=== PATIENT | male | born 1950 | race Caucasian/White ===

== ENCOUNTER 2018-04-02 05:16 | Day surgery (SDC) | payer MEDICARE ==
[2018-03-28 11:45] LABS: BASOPHILS # (AUTO) 0.1 X10'3 (0-0.2); EOSINOPHILS # (AUTO) 0.3 X10'3 (0-0.9); EOSINOPHILS % (AUTO) 4.2 % (0-6); LYMPHOCYTES # (AUTO) 1.9 X10'3 (1.1-4.8); LYMPHOCYTES % (AUTO) 25.9 % (21-51); MEAN CORPUSCULAR HEMOGLOBIN 29.2 PG (27.0-31.0); MEAN CORPUSCULAR HGB CONC 33.5 % (33.0-36.5); MEAN CORPUSCULAR VOLUME 87.2 FL (78-98); MEAN PLATELET VOLUME 7.6 FL (7.4-10.4); MONOCYTES # (AUTO) 0.5 X10'3 (0-0.9); MONOCYTES % (AUTO) 7.3 % (2-12); NEUTROPHILS # (AUTO) 4.4 X10'3 (1.8-7.7); NEUTROPHILS % (AUTO) 61.6 % (42-75); PRE OP HEMOGLOBIN 13.4 g/dL (14.0-17.9); PRE OP PLATELET COUNT 267 X10'3 (140-440); RED BLOOD COUNT 4.59 X10'6 (4.70-6.10); RED CELL DISTRIBUTION WIDTH 14.4 % (11.5-14.5)
[2018-03-28 12:03] LABS: ALBUMIN 3.4 G/DL (3.4-5.0); ALKALINE PHOSPHATASE 134 IU/L (46-116); BLOOD UREA NITROGEN 10 MG/DL (7-18); BUN/CREATININE RATIO 11.2 (5.4-32.0); CALCIUM 8.5 MG/DL (8.5-10.1); CHLORIDE 104 MMOL/L (99-107); CREATININE 0.89 MG/DL (0.60-1.10); PRE OP ALT 28 U/L (30-65); PRE OP ANION GAP 9 (8-16); PRE OP AST 17 U/L (10-37); PRE OP BILIRUB, TOTAL 0.3 MG/DL (0.0-1.0); PRE OP GLUCOSE 94 MG/DL (70-104); PRE OP POTASSIUM 4.3 MMOL/L (3.4-5.1); PRE OP SODIUM 141 MMOL/L (135-145); TOTAL CARBON DIOXIDE 27.6 MMOL/L (24-32); TOTAL PROTEIN 6.8 G/DL (6.4-8.2); eGFR 85 ML/MIN
[~2018-04-02] VITALS: Ht 177.8 cm; Wt 80.8 kg
[2018-04-02] VITALS (8 sets, daily range): BP systolic 115–141; BP diastolic 68–83
[~2018-04-02 05:16] MED LIST: ATOR40TA PO; LANTUS SQ; METF1000 PO; METO-292 PO; OMEP40CA37 PO; TERA2CAP4 PO; VENL150C2 PO; ringers solution, lacted 1,000 ML IV SCH
[2018-04-02] MEDS ORDERED: Cefazolin 2GM/50ML dext iso,osmotic IVPB IV ONE (05:30)
[2018-04-02] MEDS ORDERED: famotidine 20mg tablet PO ONE (05:30)
[2018-04-02] MEDS ORDERED: LIDOcaine 1% (10mg/ml) 2ml vial ONE (06:02)
[2018-04-02] MEDS ORDERED: triamcinolone acetonide 40mg/ml inj ONE (06:04)
[2018-04-02] MEDS ORDERED: BUPIVAcaine/PF 2.5mg/ml (0.25%) 10ml vial ONE (06:04)
[2018-04-02] MEDS ORDERED: sevoflurane 250ml liquid IH ONE (07:07)
[2018-04-02] MEDS ORDERED: ROPIVAcaine 0.5% (5mg/ml) 30ml vial ONE (07:11)
[2018-04-02] MEDS ORDERED: cloNIDine hcl/PF 100mcg/ml inj ONE (07:11)
[2018-04-02] MEDS ORDERED: LIDOcaine 2% (20mg/ml) 5ml vial ONE (07:16)
[2018-04-02] MEDS ORDERED: midazolam 2 mg/2 ml injection ONE (07:16)
[2018-04-02] MEDS ORDERED: fentaNYL/PF 50MCG/1 ML 2ML syringe ONE (07:16)
[2018-04-02] MEDS ORDERED: dexamethasone sod phosphate 4mg/ml inj. ONE (07:16)
[2018-04-02] MEDS ORDERED: propofol inj 20 ML IV ONE (07:16)
[2018-04-02] MEDS ORDERED: HYDROcodone/acetaminophen 10/325mg tab PO PRN (07:45)
[2018-04-02] MEDS ORDERED: ringers solution, lacted 1,000 ML IV SCH (07:47)
[2018-04-02] MEDS ORDERED: ondansetron/PF 4mg/2ml inj IV PRN (07:50)
[2018-04-02] MEDS ORDERED: labetalol 20mg/4ml (5mg/ml) syringe IV PRN (07:50)
[2018-04-02] MEDS ORDERED: hydrALAZINE 20mg/ml inj. IV PRN (07:50)
[2018-04-02] MEDS ORDERED: morphine 4 MG/ML inj SYRINge IV PRN ×2 (07:50)
[2018-04-02] MEDS ORDERED: fentaNYL/PF 50MCG/1 ML 2ML syringe IV PRN ×2 (07:50)
== END 2018-04-02 08:50 | disposition home or self-care (01) ==
LOC: PAS 05:16
PROVIDERS: ATTEND Orthopaedic Surgery
DX: M24.561 Contracture, right knee (principal); I25.10 Atherosclerotic heart disease of native coronary artery without angina pectoris; I10 Essential (primary) hypertension; E11.9 Type 2 diabetes mellitus without complications; G89.18 Other acute postprocedural pain; I45.81 Long QT syndrome; M17.11 Unilateral primary osteoarthritis, right knee; Z47.1 Aftercare following joint replacement surgery; Z96.651 Presence of right artificial knee joint; Z79.891 Long term (current) use of opiate analgesic; Z79.4 Long term (current) use of insulin; Z72.89 Other problems related to lifestyle; Z79.82 Long term (current) use of aspirin; Z79.84 Long term (current) use of oral hypoglycemic drugs; Z87.891 Personal history of nicotine dependence; Z90.49 Acquired absence of other specified parts of digestive tract; Z95.5 Presence of coronary angioplasty implant and graft; Z85.01 Personal history of malignant neoplasm of esophagus; Z92.21 Personal history of antineoplastic chemotherapy; Z92.3 Personal history of irradiation; Z79.899 Other long term (current) drug therapy; Z98.890 Other specified postprocedural states
CPT/HCPCS: 20610; 27570; 36415; 64447; 80053; 82948; 85025; 87070; 87075; 93005; J0690; J0735; J1100; J2001; J2250; J2704; J2795; J3010; J3301; J3490; J7120

== ENCOUNTER 2018-05-09 15:09 | Emergency (ER) | payer MEDICARE ==
[~2018-05-09] VITALS: Ht 177.8 cm; Wt 76.3 kg
[~2018-05-09 15:09] MED LIST changes: -ringers solution, lacted 1,000 ML IV SCH
[2018-05-09 15:16] VITALS: BP 137/88
== END 2018-05-09 16:13 | disposition home or self-care (01) ==
LOC: ER 15:10
DX: M25.561 Pain in right knee (principal); Z79.899 Other long term (current) drug therapy; Z96.651 Presence of right artificial knee joint
CPT/HCPCS: 73560; 99284

== ENCOUNTER 2018-07-04 06:11 | Inpatient (IN) | payer MEDICARE ==
[2018-07-01 16:10] LABS: BASOPHILS # (AUTO) 0.1 X10'3 (0-0.2); BASOPHILS % (AUTO) 1.2 % (0-1); EOSINOPHILS # (AUTO) 0.2 X10'3 (0-0.9); EOSINOPHILS % (AUTO) 2.7 % (0-6); LYMPHOCYTES # (AUTO) 2.3 X10'3 (1.1-4.8); LYMPHOCYTES % (AUTO) 24.3 % (21-51); MEAN CORPUSCULAR HEMOGLOBIN 29.3 PG (27.0-31.0); MEAN CORPUSCULAR HGB CONC 32.4 % (33.0-36.5); MEAN CORPUSCULAR VOLUME 90.2 FL (78-98); MONOCYTES # (AUTO) 0.7 X10'3 (0-0.9); NEUTROPHILS % (AUTO) 64.8 % (42-75); PRE OP HEMATOCRIT 43.9 % (42.0-52.0); PRE OP HEMOGLOBIN 14.3 g/dL (14.0-17.9); PRE OP PLATELET COUNT 284 X10'3 (140-440); RED BLOOD COUNT 4.87 X10'6 (4.70-6.10); RED CELL DISTRIBUTION WIDTH 14.8 % (11.5-14.5)
[2018-07-01 16:21] LABS: HEMOGLOBIN A1C 6.6 % (4.5-6.2)
[2018-07-01 16:29] LABS: ALBUMIN 3.6 G/DL (3.4-5.0); ALBUMIN/GLOBULIN RATIO 1.1 (1.1-1.5); ALKALINE PHOSPHATASE 138 IU/L (46-116); BLOOD UREA NITROGEN 12 MG/DL (7-18); BUN/CREATININE RATIO 12.6 (5.4-32.0); CALCIUM 8.9 MG/DL (8.5-10.1); CHLORIDE 103 MMOL/L (99-107); CREATININE 0.95 MG/DL (0.60-1.10); PRE OP ALT 35 U/L (30-65); PRE OP ANION GAP 12 (8-16); PRE OP AST 19 U/L (10-37); PRE OP BILIRUB, TOTAL 0.3 MG/DL (0.0-1.0); PRE OP GLUCOSE 110 MG/DL (70-104); PRE OP POTASSIUM 4.4 MMOL/L (3.4-5.1); PRE OP SODIUM 141 MMOL/L (135-145); TOTAL CARBON DIOXIDE 26.4 MMOL/L (24-32); eGFR 78 ML/MIN
[2018-07-04] VITALS (19 sets, daily range): BP systolic 115–163; BP diastolic 61–88
[~2018-07-04] VITALS: Ht 177.8 cm; Wt 84.0 kg
[~2018-07-04 06:11] MED LIST changes: +cefazolin/dext.iso 2gm/50ml 50 ML IV ONE; +famotidine 20mg tablet PO ONE; +ringers solution, lacted 1,000 ML IV SCH; +vancomycin inj 1,500 MG in normal saline 300ml IV soln IV ONE
[2018-07-04] MEDS ORDERED: LIDOcaine 1% (10mg/ml) 2ml vial ONE (06:48)
[2018-07-04] MEDS ORDERED: ketorolac trometh. 30mg/ml inj. ONE (06:53)
[2018-07-04] MEDS ORDERED: ROPIVAcaine 0.5% (5mg/ml) 30ml vial ONE ×2 (06:53→09:01)
[2018-07-04] MEDS ORDERED: vancomycin 1,000mg inj ONE (06:53)
[2018-07-04] MEDS ORDERED: tranexamic acid inj. 840 MG in normal saline 100ml IV soln 91.6 ML IV ONE ×4 (08:55)
[2018-07-04] MEDS ORDERED: fentaNYL/PF 50MCG/1 ML 2ML syringe ONE (08:59)
[2018-07-04] MEDS ORDERED: BUPIVAcaine/dex-water/PF 7.5 mg/ml 2ml ampul ONE (08:59)
[2018-07-04] MEDS ORDERED: MIDAZolam 1mg/ml 10ml vial ONE (08:59)
[2018-07-04] MEDS ORDERED: tetracaine 1% (10mg/ml) pres. free inj. ONE (09:01)
[2018-07-04] MEDS ORDERED: ringers solution, lacted 1,000 ML IV SCH (10:54)
[2018-07-04] MEDS ORDERED: morphine 4 MG/ML inj SYRINge IV PRN ×2 (10:55)
[2018-07-04] MEDS ORDERED: meperidine/PF 25mg/ml syringe IV PRN ×3 (10:55)
[2018-07-04] MEDS ORDERED: proCHLORperazine 10 MG/2 ml inj IV PRN (10:55)
[2018-07-04] MEDS ORDERED: ondansetron/PF 4mg/2ml inj IV PRN ×2 (10:55→12:40)
[2018-07-04] MEDS ORDERED: bisacodyl 10mg suppository rectal RC PRN (12:40)
[2018-07-04] MEDS ORDERED: acetaminophen 325mg tablet PO PRN (12:40)
[2018-07-04] MEDS ORDERED: oxyCODONE IR 5mg (immed. release) tablet PO PRN (12:40)
[2018-07-04] MEDS ORDERED: propofol inj 20 ML IV ONE ×2 (12:40→12:41)
[2018-07-04] MEDS ORDERED: diphenhydrAMINE 25mg capsule PO PRN ×2 (12:40)
[2018-07-04] MEDS ORDERED: magnesium hydroxide 30ml (MOM) UD suspension PO PRN (12:40)
[2018-07-04] MEDS: ROPIVACAINE HCL/PF PAIN PUMP 400 ML IJ SCH (12:53)
[2018-07-04] MEDS: gabapentin 300mg capsule PO SCH ×2 (15:11→20:19)
[2018-07-04] MEDS: potassium cl 20mEq in 1/2 NS 1,000 ML IV SCH (15:11)
[2018-07-04] MEDS: ketorolac tromethamine 15mg/ml inj. IV SCH ×2 (15:12→19:41)
[2018-07-04] MEDS: acetaminophen 325mg tablet PO SCH ×2 (15:13→19:42)
[2018-07-04] MEDS ORDERED: tranexamic acid inj. 840 MG in normal saline 100ml IV soln 100 ML IV ONE (16:00)
[2018-07-04] MEDS: metoclopramide 10mg tablet PO SCH ×2 (18:15→23:33)
[2018-07-04] MEDS: ceFAZolin 1GM/D5W- ADD-VANTAGE 50 ML IV SCH ×2 (18:15→23:32)
[2018-07-04] MEDS: oxyCODONE IR 5mg (immed. release) tablet PO PRN ×2 (18:16→23:33)
[2018-07-04] MEDS: pantoprazole 40mg Tablet.DR PO SCH (19:42)
[2018-07-04] MEDS: metFORMIN 500mg tablet PO SCH (19:42)
[2018-07-04] MEDS ORDERED: vancomycin/NS 1 GM ADD-VANTAGE 250 ML IV SCH (20:00)
[2018-07-04] MEDS ORDERED: non-formulary drug (Omeprazole (Prilosec) 1 CAP) PO SCH (20:00)
[2018-07-04] MEDS: atorvastatin 20mg tablet PO SCH (20:20)
[2018-07-04] MEDS: Terazosin 1mg capsule PO SCH (20:20)
[2018-07-04] MEDS: sennosides 8.6mg tablet PO SCH (20:21)
[2018-07-04] MEDS: insulin glargine (Lantus) pen - multi-dose SQ SCH (20:36)
[2018-07-04] MEDS ORDERED: TERAZOSIN HCL PO SCH (21:00)
[2018-07-04] MEDS ORDERED: non-formulary drug (Atorvastatin Calcium* (Lipitor*) 1 TABLET) PO SCH (21:00)
[2018-07-05] MEDS: acetaminophen 325mg tablet PO SCH ×4 (01:28→19:13)
[2018-07-05] MEDS: potassium cl 20mEq in 1/2 NS 1,000 ML IV SCH ×4 (01:28→20:37)
[2018-07-05] MEDS: ketorolac tromethamine 15mg/ml inj. IV SCH ×2 (01:28→10:02)
[2018-07-05 01:58] VITALS: BP 143/72
[2018-07-05] MEDS: oxyCODONE IR 5mg (immed. release) tablet PO PRN ×5 (05:01→22:09)
[2018-07-05 06:00] VITALS: BP 129/64
[2018-07-05 06:06] LABS: BASOPHILS % (AUTO) 0.5 % (0-1); EOSINOPHILS # (AUTO) 0.2 X10'3 (0-0.9); EOSINOPHILS % (AUTO) 2.6 % (0-6); HEMATOCRIT 33.2 % (42.0-52.0); HEMOGLOBIN 11.1 g/dl (14.0-17.9); LYMPHOCYTES # (AUTO) 1.3 X10'3 (1.1-4.8); LYMPHOCYTES % (AUTO) 14.4 % (21-51); MEAN CORPUSCULAR HEMOGLOBIN 29.9 PG (27.0-31.0); MEAN CORPUSCULAR HGB CONC 33.4 % (33.0-36.5); MEAN CORPUSCULAR VOLUME 89.4 FL (78-98); MEAN PLATELET VOLUME 7.5 FL (7.4-10.4); MONOCYTES # (AUTO) 0.8 X10'3 (0-0.9); MONOCYTES % (AUTO) 9.2 % (2-12); NEUTROPHILS # (AUTO) 6.4 X10'3 (1.8-7.7); NEUTROPHILS % (AUTO) 73.3 % (42-75); PLATELET COUNT 197 X10'3 (140-440); RED BLOOD COUNT 3.71 X10'6 (4.70-6.10); RED CELL DISTRIBUTION WIDTH 14.1 % (11.5-14.5); WHITE BLOOD COUNT 8.7 X10'3 (4.5-11.0)
[2018-07-05 06:34] LABS: ANION GAP 8 (8-16); CHLORIDE 107 MMOL/L (99-107); POTASSIUM 3.9 MMOL/L (3.5-5.1); SODIUM 141 MMOL/L (135-145); TOTAL CARBON DIOXIDE 26.3 MMOL/L (24-32)
[2018-07-05] MEDS ORDERED: non-formulary drug (Venlafaxine HCl (Effexor Xr) 1 CAP) PO SCH (08:00)
[2018-07-05 10:00] VITALS: BP 115/60
[2018-07-05] MEDS: pantoprazole 40mg Tablet.DR PO SCH ×2 (10:00→19:12)
[2018-07-05] MEDS: aspirin 325mg tablet PO SCH (10:01)
[2018-07-05] MEDS: gabapentin 300mg capsule PO SCH ×3 (10:01→20:14)
[2018-07-05] MEDS: metoclopramide 10mg tablet PO SCH ×3 (10:01→23:03)
[2018-07-05] MEDS: metFORMIN 500mg tablet PO SCH ×2 (10:01→19:12)
[2018-07-05] MEDS: venlafaxine XR 75mg capsule (Q24H) PO SCH (10:02)
[2018-07-05] MEDS: HYDROmorphone 1 mg/ml syringe IV PRN ×2 (12:06→16:00)
[2018-07-05 14:00] VITALS: BP 132/54
[2018-07-05 18:00] VITALS: BP 125/70
[2018-07-05] MEDS: celeCOXIB 100mg capsule PO SCH (19:12)
[2018-07-05] MEDS: atorvastatin 20mg tablet PO SCH (20:14)
[2018-07-05] MEDS: Terazosin 1mg capsule PO SCH (20:14)
[2018-07-05] MEDS: insulin glargine (Lantus) pen - multi-dose SQ SCH (20:20)
[2018-07-05] MEDS: sennosides 8.6mg tablet PO SCH (21:00)
[2018-07-05 22:00] VITALS: BP 139/63
[2018-07-06] MEDS: acetaminophen 325mg tablet PO SCH ×2 (01:17→08:32)
[2018-07-06] MEDS: potassium cl 20mEq in 1/2 NS 1,000 ML IV SCH (04:37)
[2018-07-06] MEDS: oxyCODONE IR 5mg (immed. release) tablet PO PRN ×4 (05:16→20:13)
[2018-07-06 06:00] VITALS: BP 125/63
[2018-07-06 06:24] LABS: BASOPHILS % (AUTO) 0.6 % (0-1); EOSINOPHILS # (AUTO) 0.2 X10'3 (0-0.9); HEMOGLOBIN 10.4 g/dl (14.0-17.9); LYMPHOCYTES # (AUTO) 1.4 X10'3 (1.1-4.8); LYMPHOCYTES % (AUTO) 18.1 % (21-51); MEAN CORPUSCULAR HEMOGLOBIN 30.2 PG (27.0-31.0); MEAN CORPUSCULAR HGB CONC 33.6 % (33.0-36.5); MEAN CORPUSCULAR VOLUME 89.7 FL (78-98); MEAN PLATELET VOLUME 7.9 FL (7.4-10.4); MONOCYTES # (AUTO) 0.8 X10'3 (0-0.9); MONOCYTES % (AUTO) 11.1 % (2-12); NEUTROPHILS # (AUTO) 5.1 X10'3 (1.8-7.7); NEUTROPHILS % (AUTO) 67.2 % (42-75); PLATELET COUNT 186 X10'3 (140-440); RED BLOOD COUNT 3.46 X10'6 (4.70-6.10); WHITE BLOOD COUNT 7.6 X10'3 (4.5-11.0)
[2018-07-06] MEDS: venlafaxine XR 75mg capsule (Q24H) PO SCH (08:30)
[2018-07-06] MEDS: celeCOXIB 100mg capsule PO SCH ×2 (08:30→19:04)
[2018-07-06] MEDS: metFORMIN 500mg tablet PO SCH ×2 (08:30→19:05)
[2018-07-06] MEDS: gabapentin 300mg capsule PO SCH ×3 (08:31→20:06)
[2018-07-06] MEDS: metoclopramide 10mg tablet PO SCH ×2 (08:31→15:45)
[2018-07-06] MEDS: pantoprazole 40mg Tablet.DR PO SCH ×2 (08:31→19:04)
[2018-07-06] MEDS: aspirin 325mg tablet PO SCH (08:33)
[2018-07-06 10:00] VITALS: BP 118/64
[2018-07-06] MEDS: ROPIVACAINE HCL/PF PAIN PUMP 400 ML IJ SCH (10:52)
[2018-07-06] MEDS ORDERED: acetaminophen 325mg tablet PO PRN (12:40)
[2018-07-06 18:00] VITALS: BP 147/80
[2018-07-06] MEDS: Terazosin 1mg capsule PO SCH (20:06)
[2018-07-06] MEDS: sennosides 8.6mg tablet PO SCH (20:06)
[2018-07-06] MEDS: atorvastatin 20mg tablet PO SCH (20:06)
[2018-07-06] MEDS: insulin glargine (Lantus) pen - multi-dose SQ SCH (20:13)
[2018-07-06 22:00] VITALS: BP 139/68
[2018-07-07] MEDS: oxyCODONE IR 5mg (immed. release) tablet PO PRN ×3 (00:10→10:24)
[2018-07-07] MEDS: metoclopramide 10mg tablet PO SCH ×2 (00:10→07:22)
[2018-07-07 06:59] VITALS: BP 122/70
[2018-07-07 07:13] LABS: BASOPHILS % (AUTO) 0.3 % (0-1); EOSINOPHILS # (AUTO) 0.2 X10'3 (0-0.9); EOSINOPHILS % (AUTO) 2.4 % (0-6); HEMOGLOBIN 10.4 g/dl (14.0-17.9); LYMPHOCYTES # (AUTO) 1.2 X10'3 (1.1-4.8); LYMPHOCYTES % (AUTO) 15.4 % (21-51); MEAN CORPUSCULAR HEMOGLOBIN 29.9 PG (27.0-31.0); MEAN CORPUSCULAR HGB CONC 33.5 % (33.0-36.5); MEAN CORPUSCULAR VOLUME 89.4 FL (78-98); MEAN PLATELET VOLUME 7.6 FL (7.4-10.4); MONOCYTES # (AUTO) 0.6 X10'3 (0-0.9); MONOCYTES % (AUTO) 7.3 % (2-12); NEUTROPHILS # (AUTO) 5.7 X10'3 (1.8-7.7); NEUTROPHILS % (AUTO) 74.6 % (42-75); PLATELET COUNT 195 X10'3 (140-440); RED BLOOD COUNT 3.46 X10'6 (4.70-6.10); RED CELL DISTRIBUTION WIDTH 14.4 % (11.5-14.5); WHITE BLOOD COUNT 7.7 X10'3 (4.5-11.0)
[2018-07-07] MEDS: gabapentin 300mg capsule PO SCH ×2 (07:21→13:19)
[2018-07-07] MEDS: pantoprazole 40mg Tablet.DR PO SCH (07:21)
[2018-07-07] MEDS: aspirin 325mg tablet PO SCH (07:21)
[2018-07-07] MEDS: celeCOXIB 100mg capsule PO SCH (07:21)
[2018-07-07] MEDS: venlafaxine XR 75mg capsule (Q24H) PO SCH (07:22)
[2018-07-07] MEDS: metFORMIN 500mg tablet PO SCH (07:22)
[2018-07-07] MEDS ORDERED: dextrose ORAL solution 15 GM/59 ML bottle PO PRN ×2 (07:40→07:45)
[2018-07-07 12:01] VITALS: BP 120/66
== END 2018-07-07 14:15 | disposition home or self-care (01) | DRG 467 ==
LOC: PAS IN 06:11 → EDSTATUS 13:30 → ORTHO 4S 13:59
PROVIDERS: ADMIT Orthopaedic Surgery; ATTEND Orthopaedic Surgery
PROC: 0SRT0J9 Replacement of Right Knee Joint, Femoral Surface with Synthetic Substitute, Cemented, Open Approach (ICD-10-PCS; 2018-07-04)
PROC: 8E0YXBZ Computer Assisted Procedure of Lower Extremity (ICD-10-PCS; 2018-07-04)
PROC: 3E0T3BZ Introduction of Anesthetic Agent into Peripheral Nerves and Plexi, Percutaneous Approach (ICD-10-PCS; 2018-07-04)
PROC: 0SPV0JZ Removal of Synthetic Substitute from Right Knee Joint, Tibial Surface, Open Approach (ICD-10-PCS; 2018-07-04)
PROC: 0SRV0J9 Replacement of Right Knee Joint, Tibial Surface with Synthetic Substitute, Cemented, Open Approach (ICD-10-PCS; 2018-07-04)
PROC: 0SPT0JZ Removal of Synthetic Substitute from Right Knee Joint, Femoral Surface, Open Approach (ICD-10-PCS; principal; 2018-07-04 09:29)
DX: T84.092A Other mechanical complication of internal right knee prosthesis, initial encounter (principal); D62 Acute posthemorrhagic anemia; M25.661 Stiffness of right knee, not elsewhere classified; E11.9 Type 2 diabetes mellitus without complications; I25.10 Atherosclerotic heart disease of native coronary artery without angina pectoris; N40.0 Benign prostatic hyperplasia without lower urinary tract symptoms; M81.0 Age-related osteoporosis without current pathological fracture; K21.9 Gastro-esophageal reflux disease without esophagitis; E78.5 Hyperlipidemia, unspecified; F41.9 Anxiety disorder, unspecified; F32.9 Major depressive disorder, single episode, unspecified; M21.261 Flexion deformity, right knee; Y83.1 Surgical operation with implant of artificial internal device as the cause of abnormal reaction of the patient, or of later complication, without mention of misadventure at the time of the procedure; Z90.49 Acquired absence of other specified parts of digestive tract; Z79.899 Other long term (current) drug therapy; Z79.4 Long term (current) use of insulin; Z79.84 Long term (current) use of oral hypoglycemic drugs; Z87.891 Personal history of nicotine dependence; Y92.89 Other specified places as the place of occurrence of the external cause
CPT/HCPCS: 36415; 80051; 80053; 82948; 83036; 85025; 87070; 87075; 87102; 87176; 93005; 97110; 97116; 97161; 97530; A7000; A9272; C1713; C1758; C1776; G0378; J0690; J1170; J1815; J1885; J2250; J2704; J2795; J3010; J3370; J3490; J7030; J7120; J8597; Q0163

== ENCOUNTER 2018-10-29 06:50 | Inpatient (IN) | payer MEDICARE ==
[2018-10-23 15:24] LABS: BASOPHILS # (AUTO) 0.1 X10'3 (0-0.2); BASOPHILS % (AUTO) 1.1 % (0-1); EOSINOPHILS # (AUTO) 0.2 X10'3 (0-0.9); EOSINOPHILS % (AUTO) 2.3 % (0-6); LYMPHOCYTES # (AUTO) 1.8 X10'3 (1.1-4.8); LYMPHOCYTES % (AUTO) 25.7 % (21-51); MEAN CORPUSCULAR HEMOGLOBIN 29.7 PG (27.0-31.0); MEAN CORPUSCULAR HGB CONC 32.9 g/dL (33.0-36.5); MEAN CORPUSCULAR VOLUME 90.2 FL (78-98); MONOCYTES # (AUTO) 0.6 X10'3 (0-0.9); MONOCYTES % (AUTO) 8.2 % (2-12); NEUTROPHILS # (AUTO) 4.4 X10'3 (1.8-7.7); NEUTROPHILS % (AUTO) 62.7 % (42-75); PRE OP HEMATOCRIT 39.7 % (42.0-52.0); PRE OP HEMOGLOBIN 13.1 g/dL (14.0-17.9); PRE OP PLATELET COUNT 243 X10'3 (140-440); RED BLOOD COUNT 4.39 X10'6 (4.70-6.10); RED CELL DISTRIBUTION WIDTH 14.7 % (11.5-14.5)
[2018-10-23 15:36] LABS: ALBUMIN 3.7 G/DL (3.4-5.0); ALBUMIN/GLOBULIN RATIO 1.2 (1.1-1.5); ALKALINE PHOSPHATASE 181 IU/L (46-116); BLOOD UREA NITROGEN 18 MG/DL (7-18); BUN/CREATININE RATIO 19.4 (5.4-32.0); CALCIUM 8.8 MG/DL (8.5-10.1); CHLORIDE 104 MMOL/L (99-107); CREATININE 0.93 MG/DL (0.60-1.10); PRE OP ALT 26 U/L (30-65); PRE OP ANION GAP 7 (8-16); PRE OP AST 19 U/L (10-37); PRE OP BILIRUB, TOTAL 0.2 MG/DL (0.0-1.0); PRE OP GLUCOSE 129 MG/DL (70-104); PRE OP POTASSIUM 4.4 MMOL/L (3.4-5.1); PRE OP SODIUM 141 MMOL/L (135-145); TOTAL CARBON DIOXIDE 29.6 MMOL/L (24-32); TOTAL PROTEIN 6.8 G/DL (6.4-8.2); eGFR 80 ML/MIN
[2018-10-23 15:41] LABS: PRE OP PROTIME 10.1 SECONDS (9.0-12.0)
[~2018-10-29] VITALS: Ht 177.8 cm; Wt 83.8 kg
[2018-10-29] VITALS (18 sets, daily range): BP systolic 95–154; BP diastolic 55–89
[~2018-10-29 06:50] MED LIST changes: +ASPI-1265 PO; +IBUP-1984 PO; -METO-292 PO; +OXYC5CAP19 PO; -cefazolin/dext.iso 2gm/50ml 50 ML IV ONE; +tranexamic acid inj. 900 MG in normal saline 100ml IV soln 100 ML IV ONE; -vancomycin inj 1,500 MG in normal saline 300ml IV soln IV ONE
[2018-10-29] MEDS ORDERED: ketorolac trometh. 30mg/ml inj. ONE (08:49)
[2018-10-29] MEDS ORDERED: ROPIVAcaine 0.5% (5mg/ml) 30ml vial ONE ×2 (08:49→10:05)
[2018-10-29] MEDS ORDERED: tranexamic acid inj. 900 MG in normal saline 100ml IV soln 100 ML IV ONE ×2 (09:30→18:15)
[2018-10-29] MEDS ORDERED: tetracaine 1% (10mg/ml) pres. free inj. ONE (10:06)
[2018-10-29] MEDS ORDERED: fentaNYL/PF 50MCG/1 ML 2ML syringe ONE (11:18)
[2018-10-29] MEDS ORDERED: MIDAZolam 1mg/ml 10ml vial ONE (11:18)
[2018-10-29] MEDS ORDERED: ceFAZolin 1000mg inj ONE ×2 (12:33)
[2018-10-29] MEDS ORDERED: propofol inj 20 ML IV ONE ×3 (12:33)
[2018-10-29] MEDS ORDERED: vancomycin 1,000mg inj ONE (12:36)
[2018-10-29] MEDS ORDERED: ringers solution, lacted 1,000 ML IV SCH (12:52)
[2018-10-29] MEDS ORDERED: ondansetron/PF 4mg/2ml inj IV PRN ×2 (12:55→15:15)
[2018-10-29] MEDS ORDERED: meperidine/PF 25mg/ml syringe IV PRN ×3 (12:55)
[2018-10-29] MEDS ORDERED: proCHLORperazine 10 MG/2 ml inj IV PRN (12:55)
[2018-10-29] MEDS ORDERED: morphine 4 MG/ML inj SYRINge IV PRN ×2 (12:55)
[2018-10-29 14:08] LABS: APPEARANCE,SYNOVIAL FLUID HAZY; COLOR,SYNOVIAL FLUID RED; LYMPHOCYTES,SYNOVIAL FLUID 56 % (0-75); MONOCYTES,SYNOVIAL FLUID 12 % (0-0); NEUTROPHILS,SYNOVIAL FLUID 32 % (0-25); SYN RBC 4000 /CU MM (0); SYN WBC 12 /CU MM (0-200)
[2018-10-29 14:09] LABS: SYNOVIAL LINING CELLS FEW
[2018-10-29] MEDS ORDERED: diphenhydrAMINE 25mg capsule PO PRN ×2 (15:15)
[2018-10-29] MEDS ORDERED: bisacodyl 10mg suppository rectal RC PRN (15:15)
[2018-10-29] MEDS ORDERED: magnesium hydroxide 30ml (MOM) UD suspension PO PRN (15:15)
[2018-10-29] MEDS ORDERED: HYDROmorphone 1 mg/ml syringe IV PRN (15:15)
[2018-10-29] MEDS ORDERED: HYDROmorphone inj. 0.5 MG/0.5 ML DISP.SYRIN IV PRN (15:15)
[2018-10-29] MEDS ORDERED: non-formulary drug (Oxycodone HCl 2 CAP) PO PRN (15:15)
[2018-10-29] MEDS ORDERED: oxyCODONE IR 5mg (immed. release) tablet PO PRN (15:15)
[2018-10-29] MEDS ORDERED: acetaminophen 325mg tablet PO PRN (15:15)
--- NOTE | 2018-10-29 15:26 | NUR ---
Received from OR via , accompanied by DR. SEBASTIAN, Anesthesiologist and report given by Anesthesiolgist. S/P RT. TKA PER DR RIVERA W/ SPINAL ANESTHESIA. PT. AWAKE, ALERT, APPROP. RESPS. EVEN & UNLABORED. SPINAL LEVEL L1. NO MOVEMENT OF LEGS @ THIS TIME. RT. KNEE BANDAGE DRY & INTACT. JING DRSG IN PLACE TO RT. KNEE FROM OR. POWDER MELCHOR TO RT. KNEE FROM OR. RT. ADDUCTOR CANAL CATHETER IN PLACE, SITE INTACT. RT. FOOT PINK, WARM W/ GOOD CAP REFILL. + RT. DP PULSE W/ DOPPLER. SWEET TO GRAVITY W/ DARK YELLOW URINE. LT. ARM IV PATENT. PT. REASSURED.
[2018-10-29] MEDS: ROPIVAcaine 0.2%/PF PAIN PUMP 550 ML IJ SCH (15:49)
[2018-10-29] MEDS ORDERED: ceFAZolin 1GM/D5W- ADD-VANTAGE 50 ML IV SCH (16:00)
--- NOTE | 2018-10-29 16:35 | NUR ---
Report called to receiving nurse, MESHA KOHIL . Transferred via BED. Belongings W/ PT. PT. A X O X 4. APPROP. RESPS. EVEN & UNLABORED. SPINAL LEVEL L1-L2. PT. DENIES PAIN. RT. KNEE JING DRSG DRY & INTACT. POWDER MELCHOR IN PLACE. RT. ADDUCTOR CANAL CATH INTACT. RT. FOOT PINK, WARM W/ GOOD CAP REFILL. SWEET TO GRAVITY W/ CL. YELLOW URINE PRESENT. LT. ARM IV PATENT. . Special Issues communicated to receiving nurse.
--- NOTE | 2018-10-29 17:38 | NUR ---
legs still numb due to spinal Addendum: 10/29/18 at 1743 by Maria Teresa RODRIGUEZ Amended: Links added.
--- NOTE | 2018-10-29 17:40 | NUR ---
Patient is unable to lie flat due to esophageal cancer and radiation Addendum: 10/29/18 at 1743 by Maria Teresa RODRIGUEZ Amended: Links added.
--- NOTE | 2018-10-29 18:29 | NUR ---
Student documentation: I have reviewed and agree with all interventions, assessments performed and documented by Maria Teresa ELAINE. Student Medication Administration: For this medication-pass time frame, all medication were reviewed, dispensed, administered and documented per hospital policy by Maria Teresa ELAINE.
[2018-10-29] MEDS: ketorolac tromethamine 15mg/ml inj. IV SCH (19:19)
[2018-10-29] MEDS: ibuprofen 200mg tablet PO SCH (19:19)
[2018-10-29] MEDS: acetaminophen 325mg tablet PO SCH (19:19)
[2018-10-29] MEDS ORDERED: vancomycin/NS 1 GM ADD-VANTAGE 250 ML IV SCH (20:00)
[2018-10-29] MEDS: aspirin 81mg tab.chew PO SCH (20:05)
[2018-10-29] MEDS: potassium cl 20mEq in 1/2 NS 1,000 ML IV SCH ×2 (20:17→23:12)
[2018-10-29] MEDS: atorvastatin 20mg tablet PO SCH (20:18)
[2018-10-29] MEDS: pantoprazole 40mg Tablet.DR PO SCH (20:18)
[2018-10-29] MEDS: oxyCODONE IR 5mg (immed. release) tablet PO PRN (20:19)
[2018-10-29] MEDS: metFORMIN 500mg tablet PO SCH (20:19)
[2018-10-29] MEDS: sennosides 8.6mg tablet PO SCH (20:20)
[2018-10-29] MEDS: Terazosin 1mg capsule PO SCH (20:20)
[2018-10-29] MEDS: insulin glargine (Lantus) pen - multi-dose SQ SCH (20:20)
[2018-10-29] MEDS ORDERED: ceFAZolin 1GM/D5W- ADD-VANTAGE 50 ML IV ONE (22:00)
[2018-10-30] MEDS: oxyCODONE IR 5mg (immed. release) tablet PO PRN (00:27)
[2018-10-30] MEDS: ketorolac tromethamine 15mg/ml inj. IV SCH ×3 (01:49→14:50)
[2018-10-30] MEDS: acetaminophen 325mg tablet PO SCH (01:49)
[2018-10-30 02:00] VITALS: BP 140/68
[2018-10-30] MEDS ORDERED: oxyCODONE/APAP 10/325mg tablet PO PRN (04:35)
[2018-10-30] MEDS: oxyCODONE/APAP 10/325mg tablet PO PRN ×4 (04:46→19:28)
[2018-10-30 05:00] VITALS: BP 119/59
--- NOTE | 2018-10-30 05:20 | NUR ---
Angeles catheter removed per SCIP order and by protocol. Patient tolerated well. Pt verbalized understanding for use of urinal provided at bedside. Call light within reach, will continue to monitor.
[2018-10-30] MEDS ORDERED: ceFAZolin 1GM/D5W- ADD-VANTAGE 50 ML IV SCH (06:00)
[2018-10-30] MEDS: potassium cl 20mEq in 1/2 NS 1,000 ML IV SCH ×3 (06:21→23:12)
[2018-10-30 06:44] LABS: BASOPHILS % (AUTO) 0.7 % (0-1); EOSINOPHILS # (AUTO) 0.1 X10'3 (0-0.9); EOSINOPHILS % (AUTO) 1.5 % (0-6); HEMATOCRIT 26.9 % (42.0-52.0); HEMOGLOBIN 9.1 g/dl (14.0-17.9); LYMPHOCYTES # (AUTO) 1.4 X10'3 (1.1-4.8); MEAN CORPUSCULAR HEMOGLOBIN 30.6 PG (27.0-31.0); MEAN CORPUSCULAR HGB CONC 33.8 g/dL (33.0-36.5); MEAN CORPUSCULAR VOLUME 90.6 FL (78-98); MEAN PLATELET VOLUME 8.1 FL (7.4-10.4); MONOCYTES # (AUTO) 0.8 X10'3 (0-0.9); NEUTROPHILS # (AUTO) 4.9 X10'3 (1.8-7.7); NEUTROPHILS % (AUTO) 67.8 % (42-75); PLATELET COUNT 165 X10'3 (140-440); RED BLOOD COUNT 2.96 X10'6 (4.70-6.10); RED CELL DISTRIBUTION WIDTH 14.2 % (11.5-14.5); WHITE BLOOD COUNT 7.2 X10'3 (4.5-11.0)
[2018-10-30 06:56] LABS: ANION GAP 5 (8-16); CHLORIDE 107 MMOL/L (99-107); POTASSIUM 4.3 MMOL/L (3.5-5.1); SODIUM 139 MMOL/L (135-145); TOTAL CARBON DIOXIDE 26.7 MMOL/L (24-32)
--- NOTE | 2018-10-30 06:58 | NUR ---
Report given to Soraya ZIMMER.
[2018-10-30] MEDS: ibuprofen 200mg tablet PO SCH ×2 (08:00→20:00)
[2018-10-30] MEDS: venlafaxine XR 75mg capsule (Q24H) PO SCH (08:24)
[2018-10-30] MEDS: metFORMIN 500mg tablet PO SCH ×2 (08:24→22:00)
[2018-10-30] MEDS: pantoprazole 40mg Tablet.DR PO SCH ×2 (08:24→22:00)
[2018-10-30 10:00] VITALS: BP 150/60
[2018-10-30 14:00] VITALS: BP 135/64
--- NOTE | 2018-10-30 17:46 | NUR ---
DM consult: Pt with A1c 7.0 seen at bedside. Pt states he sees an MD q 6 months, takes his DM meds per rx, and doesn't usually check his BG levels at home. Pt with no DM questions at this time. Pt given written DM ed with referral to outpatient DM class. Pt s/p surgery to right knee given written and verbal protein education. Pt states he has protein supplements at home. Pt with no additional questions at this time. RD contact information provided. Pt currently on CHO controlled diet with documented PO intake 75-100% meeting nutrient needs. [facility] 10/29. Will continue to follow. Addendum: 10/30/18 at [address] Amended: Links added.
[2018-10-30 18:00] VITALS: BP 137/72
--- NOTE | 2018-10-30 18:49 | NUR ---
Student documentation: I have reviewed and agree with all interventions, assessments performed and documented by Maria Teresa DOZIER. Student Medication Administration: For this medication-pass time frame, all medication were reviewed, dispensed, administered and documented per hospital policy by Maria Teresa dozier.
[2018-10-30] MEDS: sennosides 8.6mg tablet PO SCH (21:00)
[2018-10-30] MEDS: insulin glargine (Lantus) pen - multi-dose SQ SCH (21:00)
[2018-10-30 22:00] VITALS: BP 142/70
[2018-10-30] MEDS: celeCOXIB 100mg capsule PO SCH (22:00)
[2018-10-30] MEDS: atorvastatin 20mg tablet PO SCH (22:01)
[2018-10-30] MEDS: Terazosin 1mg capsule PO SCH (22:01)
[2018-10-30] MEDS: aspirin 81mg tab.chew PO SCH (22:35)
[2018-10-31] MEDS: oxyCODONE/APAP 10/325mg tablet PO PRN ×4 (03:15→19:33)
[2018-10-31 06:00] VITALS: BP 124/70
[2018-10-31 06:08] LABS: BASOPHILS # (AUTO) 0.1 X10'3 (0-0.2); BASOPHILS % (AUTO) 0.7 % (0-1); EOSINOPHILS # (AUTO) 0.1 X10'3 (0-0.9); EOSINOPHILS % (AUTO) 1.7 % (0-6); HEMATOCRIT 26.1 % (42.0-52.0); HEMOGLOBIN 8.9 g/dl (14.0-17.9); LYMPHOCYTES # (AUTO) 1.2 X10'3 (1.1-4.8); LYMPHOCYTES % (AUTO) 16.3 % (21-51); MEAN CORPUSCULAR HEMOGLOBIN 30.6 PG (27.0-31.0); MEAN PLATELET VOLUME 8.1 FL (7.4-10.4); MONOCYTES # (AUTO) 0.7 X10'3 (0-0.9); MONOCYTES % (AUTO) 10.3 % (2-12); PLATELET COUNT 166 X10'3 (140-440); RED CELL DISTRIBUTION WIDTH 14.2 % (11.5-14.5); WHITE BLOOD COUNT 7.1 X10'3 (4.5-11.0)
--- NOTE | 2018-10-31 06:25 | NUR ---
Patient in room ORTHO 4021. I have received report from Marie ZIMMER and had the opportunity to ask questions and assume patient care.
[2018-10-31] MEDS: potassium cl 20mEq in 1/2 NS 1,000 ML IV SCH (07:12)
[2018-10-31] MEDS: ibuprofen 200mg tablet PO SCH ×2 (07:24→19:34)
[2018-10-31] MEDS: pantoprazole 40mg Tablet.DR PO SCH ×2 (07:25→19:34)
[2018-10-31] MEDS: venlafaxine XR 75mg capsule (Q24H) PO SCH (07:26)
[2018-10-31] MEDS: metFORMIN 500mg tablet PO SCH ×2 (07:26→19:34)
[2018-10-31] MEDS: celeCOXIB 100mg capsule PO SCH ×2 (07:26→19:34)
[2018-10-31 10:00] VITALS: BP 129/65
[2018-10-31] MEDS ORDERED: ASPI-1265 PO (10:08)
[2018-10-31] MEDS: ROPIVAcaine 0.2%/PF PAIN PUMP 550 ML IJ SCH (12:52)
[2018-10-31 14:00] VITALS: BP 129/61
[2018-10-31] MEDS ORDERED: acetaminophen 325mg tablet PO PRN (15:15)
[2018-10-31 18:00] VITALS: BP 133/64
--- NOTE | 2018-10-31 18:25 | NUR ---
Problems reprioritized. Patient report given, questions answered & plan of care reviewed with Luis Eduardo ZIMMER.
--- NOTE | 2018-10-31 19:00 | NUR ---
Patient in room ORTHO 4021. I have received report from Maira ZIMMER and had the opportunity to ask questions and assume patient care.
[2018-10-31] MEDS: Terazosin 1mg capsule PO SCH (19:35)
[2018-10-31] MEDS: aspirin 81mg tab.chew PO SCH (19:36)
[2018-10-31] MEDS: atorvastatin 20mg tablet PO SCH (19:36)
[2018-10-31] MEDS: insulin glargine (Lantus) pen - multi-dose SQ SCH (21:00)
[2018-10-31] MEDS: sennosides 8.6mg tablet PO SCH (21:00)
[2018-10-31 22:00] VITALS: BP 131/62
[2018-11-01] MEDS: oxyCODONE/APAP 10/325mg tablet PO PRN ×3 (00:32→10:25)
[2018-11-01 02:38] VITALS: BP 125/62
[2018-11-01 06:00] VITALS: BP 136/68
[2018-11-01 06:09] LABS: BASOPHILS # (AUTO) 0.1 X10'3 (0-0.2); BASOPHILS % (AUTO) 0.9 % (0-1); EOSINOPHILS # (AUTO) 0.2 X10'3 (0-0.9); EOSINOPHILS % (AUTO) 3.4 % (0-6); HEMATOCRIT 25.1 % (42.0-52.0); HEMOGLOBIN 8.5 g/dl (14.0-17.9); LYMPHOCYTES # (AUTO) 1.5 X10'3 (1.1-4.8); LYMPHOCYTES % (AUTO) 26.1 % (21-51); MEAN CORPUSCULAR HEMOGLOBIN 30.5 PG (27.0-31.0); MEAN CORPUSCULAR VOLUME 89.6 FL (78-98); MEAN PLATELET VOLUME 7.8 FL (7.4-10.4); MONOCYTES # (AUTO) 0.7 X10'3 (0-0.9); NEUTROPHILS # (AUTO) 3.3 X10'3 (1.8-7.7); NEUTROPHILS % (AUTO) 57.6 % (42-75); PLATELET COUNT 173 X10'3 (140-440); RED CELL DISTRIBUTION WIDTH 14.1 % (11.5-14.5); WHITE BLOOD COUNT 5.8 X10'3 (4.5-11.0)
--- NOTE | 2018-11-01 06:16 | NUR ---
Problems reprioritized. Patient report given, questions answered & plan of care reviewed with Maira ZIMMER.
--- NOTE | 2018-11-01 06:20 | NUR ---
Patient in room ORTHO 4021. I have received report from Luis Eduardo ZIMMER and had the opportunity to ask questions and assume patient care.
[2018-11-01] MEDS: metFORMIN 500mg tablet PO SCH (08:08)
[2018-11-01] MEDS: celeCOXIB 100mg capsule PO SCH (08:08)
[2018-11-01] MEDS: ibuprofen 200mg tablet PO SCH (08:08)
[2018-11-01] MEDS: venlafaxine XR 75mg capsule (Q24H) PO SCH (08:08)
[2018-11-01] MEDS: pantoprazole 40mg Tablet.DR PO SCH (08:08)
[2018-11-01 10:00] VITALS: BP 119/57
--- NOTE | 2018-11-01 12:10 | NUR ---
Patient transferred to [facility] today. Report called to Sangeeta. All belongings sent with patient. IV out.
== END 2018-11-01 11:53 | DRG 467 ==
LOC: PAS IN 06:50 → EDSTATUS 10:50 → ORTHO 4S 17:07
PROVIDERS: ADMIT Orthopaedic Surgery; ATTEND Orthopaedic Surgery
PROC: 0SRC0J9 Replacement of Right Knee Joint with Synthetic Substitute, Cemented, Open Approach (ICD-10-PCS; 2018-10-29)
PROC: 3E0T3BZ Introduction of Anesthetic Agent into Peripheral Nerves and Plexi, Percutaneous Approach (ICD-10-PCS; 2018-10-29)
PROC: 0SPC0JZ Removal of Synthetic Substitute from Right Knee Joint, Open Approach (ICD-10-PCS; principal; 2018-10-29 11:14)
DX: T84.82XA Fibrosis due to internal orthopedic prosthetic devices, implants and grafts, initial encounter (principal); D62 Acute posthemorrhagic anemia; M24.661 Ankylosis, right knee; Z96.651 Presence of right artificial knee joint; F41.8 Other specified anxiety disorders; E11.9 Type 2 diabetes mellitus without complications; I10 Essential (primary) hypertension; I25.10 Atherosclerotic heart disease of native coronary artery without angina pectoris; K21.9 Gastro-esophageal reflux disease without esophagitis; E78.5 Hyperlipidemia, unspecified; N40.0 Benign prostatic hyperplasia without lower urinary tract symptoms; Y79.2 Prosthetic and other implants, materials and accessory orthopedic devices associated with adverse incidents
CPT/HCPCS: 36415; 71046; 80051; 80053; 82948; 83036; 85025; 85610; 85730; 87070; 87176; 88305; 88311; 89051; 97110; 97116; 97162; A7000; A9272; C1713; C1758; C1776; G0378; J0690; J1815; J1885; J2250; J2704; J2795; J3010; J3370; J7030; J7120

== ENCOUNTER 2024-02-01 11:13 | Outpatient (CLI) | payer MEDICARE ==
[~2024-02-01 11:13] MED LIST changes: -ASPI-1265 PO; +ASPI81TA52 PO; +ATOR-2 PO; -ATOR40TA PO; +HYDR-3972 PO; -IBUP-1984 PO; +MULT-1085 PO; +OMEP20CA16 PO; -OMEP40CA37 PO; -OXYC5CAP19 PO; +TICA90TA PO; +TRAZ150T78 PO; -VENL150C2 PO; +VENL150C5 PO; -famotidine 20mg tablet PO ONE; +metoprolol tartrate tablet PO; -ringers solution, lacted 1,000 ML IV SCH; -tranexamic acid inj. 900 MG in normal saline 100ml IV soln 100 ML IV ONE
[2024-02-01 11:48] LABS: ALBUMIN 3.6 G/DL (3.4-5.0); ANION GAP 12 (8-16); BLOOD UREA NITROGEN 9 MG/DL (7-18); BUN/CREATININE RATIO 9.8 (10.0-20.0); CALCIUM 9.3 MG/DL (8.5-10.1); CHLORIDE 103 MMOL/L (99-107); CREATININE 0.92 MG/DL (0.60-1.10); GLUCOSE 172 MG/DL (70-104); POTASSIUM 4.4 MMOL/L (3.5-5.1); SODIUM 141 MMOL/L (135-145); TOTAL CARBON DIOXIDE 26.1 MMOL/L (24-32); eGFR 80 ML/MIN
[2024-02-01] MEDS ORDERED: iohexol 350MG/ML 100ml bottle IV ONE (11:53)
== END 2024-02-01 23:59 | disposition home or self-care (01) ==
LOC: RAD 11:13
PROVIDERS: ATTEND Internal Medicine Interventional Cardiology
DX: I65.23 Occlusion and stenosis of bilateral carotid arteries (principal); I71.40 Abdominal aortic aneurysm, without rupture, unspecified; K55.1 Chronic vascular disorders of intestine; E78.49 Other hyperlipidemia; I25.10 Atherosclerotic heart disease of native coronary artery without angina pectoris; E78.5 Hyperlipidemia, unspecified
CPT/HCPCS: 36415; 70498; 80048; Q9967

== ENCOUNTER 2024-02-25 13:17 | Day surgery (SDC) | payer MEDICARE ==
[2024-02-25] VITALS (8 sets, daily range): BP systolic 129–172; BP diastolic 53–77; PULSE 63–77; RESP 16; TEMP 97.9; O2SAT 94–96
[~2024-02-25] VITALS: Ht 180.3 cm; Wt 68.7 kg
[2024-02-25] MEDS ORDERED: diphenhydrAMINE 25mg capsule PO PRN (13:40)
[2024-02-25] MEDS ORDERED: LORazepam 0.5 MG tablet PO PRN (13:40)
[2024-02-25] MEDS ORDERED: normal saline 1,000 ML IV SCH (13:40)
[2024-02-25] MEDS ORDERED: ATOR20TA66 PO (14:13)
[2024-02-25] MEDS ORDERED: LOP12.5T PO (14:13)
[2024-02-25] MEDS ORDERED: CLOP-32 PO (14:13)
[2024-02-25 15:25] LABS: BASOPHILS # (AUTO) 0.1 X10'3 (0-0.2); BASOPHILS % (AUTO) 1.2 % (0-1); EOSINOPHILS # (AUTO) 0.3 X10'3 (0-0.9); EOSINOPHILS % (AUTO) 3.4 % (0-6); HEMOGLOBIN 11.9 g/dl (14.0-17.9); LYMPHOCYTES # (AUTO) 1.9 X10'3 (1.1-4.8); LYMPHOCYTES % (AUTO) 21.9 % (21-51); MEAN CORPUSCULAR HEMOGLOBIN 30.2 PG (27.0-31.0); MEAN CORPUSCULAR VOLUME 91.3 FL (78-98); MONOCYTES # (AUTO) 0.5 X10'3 (0-0.9); MONOCYTES % (AUTO) 6.2 % (2-12); NEUTROPHILS # (AUTO) 5.8 X10'3 (1.8-7.7); NEUTROPHILS % (AUTO) 67.3 % (42-75); PLATELET COUNT 262 X10'3 (140-440); RED BLOOD COUNT 3.95 X10'6 (4.70-6.10); RED CELL DISTRIBUTION WIDTH 15.1 % (11.5-14.5); WHITE BLOOD COUNT 8.7 X10'3 (4.5-11.0)
[2024-02-25 15:35] LABS: ALBUMIN 3.1 G/DL (3.4-5.0); ANION GAP 4 (8-16); BLOOD UREA NITROGEN 12 MG/DL (7-18); CALCIUM 8.8 MG/DL (8.5-10.1); CHLORIDE 106 MMOL/L (99-107); GLUCOSE 134 MG/DL (70-104); POTASSIUM 4.4 MMOL/L (3.5-5.1); SODIUM 139 MMOL/L (135-145); TOTAL CARBON DIOXIDE 29.4 MMOL/L (24-32); eCRCL 78 ML/MIN; eGFR > 90 ML/MIN
[2024-02-25 15:40] LABS: APTT 28 SECONDS (22-32); PROTHROMBIN TIME 10.9 SECONDS (9.0-12.0)
[2024-02-25] MEDS ORDERED: heparin 1,000unit/ml 10ml vial 0 ML ONE (16:13)
[2024-02-25] MEDS ORDERED: DOPamine 400mg/D5W 250ml 0 ML IV ONE (16:13)
[2024-02-25] MEDS ORDERED: phenylephrine 10mg/ml inj. -priapism dosing ONE (16:13)
[2024-02-25] MEDS ORDERED: atropine 0.1mg/ml 10ml syringe ONE (16:13)
[2024-02-25] MEDS ORDERED: LIDOcaine 1% 30ml preserv. free vial ONE (16:13)
[2024-02-25] MEDS ORDERED: iohexol 350MG/ML 100ml bottle IV ONE (16:14)
[2024-02-25] MEDS ORDERED: iohexol 300mg/ml 100ml inj. ONE (16:14)
== END 2024-02-25 19:20 | disposition home or self-care (01) ==
LOC: SSTAY O 13:17
PROVIDERS: ATTEND Student in an Organized Health Care Education/Training Program
DX: I65.22 Occlusion and stenosis of left carotid artery (principal); I10 Essential (primary) hypertension; E11.9 Type 2 diabetes mellitus without complications; I25.10 Atherosclerotic heart disease of native coronary artery without angina pectoris; E78.00 Pure hypercholesterolemia, unspecified; I73.9 Peripheral vascular disease, unspecified; M19.90 Unspecified osteoarthritis, unspecified site; Z85.01 Personal history of malignant neoplasm of esophagus; Z79.02 Long term (current) use of antithrombotics/antiplatelets; Z79.891 Long term (current) use of opiate analgesic; Z79.899 Other long term (current) drug therapy
CPT/HCPCS: 36222; 36415; 80048; 85025; 85610; 85730; 93005; A6258; C1760; C1894; J1644; J2001; J2371; J7030; Q9967; Z7610; 36223; J0461; J1265; J2370; J3490